=== PATIENT | female | born 1950 | race Two or more races ===

== ENCOUNTER 2022-05-07 16:35 | Inpatient (IN) | payer MEDICARE, OTHER ==
[~2022-05-07] VITALS: Ht 142.2 cm; Wt 48.1 kg
[2022-05-08 03:27] VITALS: BP 172/54
[2022-05-08] MEDS ORDERED: FURO80TA3 PO (03:40)
[2022-05-08] MEDS ORDERED: TOPUD PO (03:40)
[2022-05-08] MEDS ORDERED: AMLO10TA80 PO (03:40)
[2022-05-08] MEDS ORDERED: SODI650T PO (03:48)
[2022-05-08] MEDS ORDERED: LOSA50TA41 MT (03:48)
[2022-05-08] MEDS ORDERED: ACETAMINOPHEN 325MG TABLET PO PRN ×2 (05:15)
[2022-05-08] MEDS ORDERED: MAGNESIUM/ALUMINUM HYDROXIDE/SIMETHICONE 30ML UDC PO PRN (05:15)
[2022-05-08] MEDS ORDERED: GUAIFENESIN 200MG/10ML SUGAR FREE UDC PO PRN (05:15)
[2022-05-08] MEDS ORDERED: LORAZEPAM 0.5MG TABLET PO PRN (05:15)
[2022-05-08] MEDS ORDERED: DOCUSATE SODIUM 100MG CAPSULE PO PRN (05:15)
[2022-05-08] MEDS ORDERED: ENOXAPARIN 40MG/0.4ML SYR SUBCUT SCH (05:15)
[2022-05-08] MEDS ORDERED: IPRATROPIUM/ALBUTEROL 0.5-3(2.5)MG/3ML NEB HHN PRN (05:15)
[2022-05-08] MEDS ORDERED: ONDANSETRON HCL 4MG/2ML INJ IV PRN (05:15)
[2022-05-08] MEDS ORDERED: CLONIDINE 0.1MG TABLET PO PRN (05:15)
[2022-05-08] MEDS ORDERED: ACETAMINOPHEN 650MG SUPP PR PRN ×2 (05:15)
[2022-05-08] MEDS: ACETAMINOPHEN 325MG TABLET PO PRN ×2 (05:18→20:49)
[2022-05-08 05:27] VITALS: BP 172/54
[2022-05-08] MEDS ORDERED: NALOXONE HCL 0.4 MG/ML 1ML VIAL IV PRN (05:45)
[2022-05-08] MEDS: CLINDAMYCIN 600 MG PREMIX 50 ML IV SCH ×3 (06:58→21:47)
[2022-05-08 07:05] LABS: BASOPHILS % 0.7 % (0.0-2.0); EOSINOPHILS % 2.4 % (0.0-5.0); HEMATOCRIT. 31.2 % (36.0-48.0); HEMOGLOBIN. 10.5 g/dL (12.0-16.0); LYMPHOCYTES % 28.8 % (20.0-50.0); MEAN CORPUSCULAR HEMOGLOBIN 32.4 pg (28.0-32.0); MEAN PLATELET VOLUME 8.1 fl (7.4-10.4); MONOCYTES % 10.4 % (2.0-8.0); NEUTROPHILS % 57.7 % (40.0-76.0); PLATELET 215 x1000/uL (130-400); RED BLOOD CELL COUNT 3.25 mill/uL (4.2-5.4); RED CELL DISTRIBUTION WIDTH 15.3 % (11.6-14.6)
[2022-05-08 07:17] LABS: CHLORIDE 100 mEq/L (98-107)
[2022-05-08 07:32] LABS: CREATINE KINASE 26 IU/L (26-192); HDL CHOLESTEROL 36 mg/dL (40-59); LDL CHOLESTEROL 87 mg/dL (5-100); PHOSPHORUS 7.8 mg/dL (2.5-4.9)
[2022-05-08 08:00] VITALS: BP 147/54
[2022-05-08 09:36] LABS: CLARITY URINE CLEAR (CLEAR); COLOR URINE YELLOW (YELLOW); KETONES URINE NEGATIVE (NEGATIVE); LEUKOCYTE ESTERASE URINE NEGATIVE (NEGATIVE); NITRITE URINE NEGATIVE (NEGATIVE); OCCULT BLOOD URINE NEGATIVE (NEGATIVE); PROTEIN URINE 2+ (NEGATIVE); SPECIFIC GRAVITY URINE 1.011 (1.005-1.030); UROBILINOGEN URINE 0.2 E.U./dL (0.2-1.0)
[2022-05-08] MEDS: LOSARTAN POTASSIUM 50 MG TABLET PO SCH (09:42)
[2022-05-08] MEDS: AMLODIPINE 10MG TABLET PO SCH (09:48)
[2022-05-08] MEDS: ENOXAPARIN 30MG/0.3ML SYR SUBCUT SCH (09:48)
[2022-05-08] MEDS: FUROSEMIDE 40MG TABLET PO SCH ×2 (09:49→20:41)
[2022-05-08] MEDS: SODIUM BICARBONATE 650 MG TABLET PO SCH ×3 (09:51→17:24)
[2022-05-08 12:00] VITALS: BP 151/48
[2022-05-08] MEDS: AMOXICILLIN/POTASSIUM CLAVULANATE 500/125MG TAB PO SCH ×2 (12:10→21:00)
[2022-05-08 16:00] VITALS: BP 148/91
[2022-05-08 20:00] VITALS: BP 158/56
[2022-05-09] VITALS: BP 144/56
[2022-05-09 04:00] VITALS: BP 160/58
[2022-05-09] MEDS: CLINDAMYCIN 600 MG PREMIX 50 ML IV SCH ×2 (05:40→13:56)
[2022-05-09 07:31] LABS: EOSINOPHILS % 2.6 % (0.0-5.0); HEMATOCRIT. 28.1 % (36.0-48.0); HEMOGLOBIN. 9.5 g/dL (12.0-16.0); MEAN CORPUSCULAR HEMOGLOBIN 32.5 pg (28.0-32.0); MEAN CORPUSCULAR VOLUME 96.2 fL (81.0-99.0); MEAN PLATELET VOLUME 8.4 fl (7.4-10.4); MONOCYTES % 8.5 % (2.0-8.0); NEUTROPHILS % 62.9 % (40.0-76.0); PLATELET 204 x1000/uL (130-400); RED BLOOD CELL COUNT 2.92 mill/uL (4.2-5.4); RED CELL DISTRIBUTION WIDTH 14.9 % (11.6-14.6)
[2022-05-09 08:00] VITALS: BP 146/52
[2022-05-09] MEDS: ENOXAPARIN 30MG/0.3ML SYR SUBCUT SCH (09:34)
[2022-05-09] MEDS: AMLODIPINE 10MG TABLET PO SCH (09:34)
[2022-05-09] MEDS: LOSARTAN POTASSIUM 50 MG TABLET PO SCH (09:34)
[2022-05-09] MEDS: SODIUM BICARBONATE 650 MG TABLET PO SCH ×3 (09:34→17:00)
[2022-05-09] MEDS: FUROSEMIDE 40MG TABLET PO SCH ×2 (09:35→21:32)
[2022-05-09 12:00] VITALS: BP 118/69
[2022-05-09] MEDS: AMOXICILLIN/POTASSIUM CLAVULANATE 500/125MG TAB PO SCH ×2 (12:34→21:33)
[2022-05-09 16:00] VITALS: BP 144/58
[2022-05-09 20:00] VITALS: BP 115/55
[2022-05-09] MEDS: CLINDAMYCIN HCL 150MG CAPSULE PO SCH (21:33)
[2022-05-09] MEDS: ACETAMINOPHEN 325MG TABLET PO PRN (23:41)
[2022-05-10] VITALS: BP 159/58
[2022-05-10 04:00] VITALS: BP 157/55
[2022-05-10] MEDS: CLINDAMYCIN HCL 150MG CAPSULE PO SCH ×3 (05:01→21:16)
[2022-05-10 07:51] LABS: EOSINOPHILS % 2.7 % (0.0-5.0); HEMOGLOBIN. 9.7 g/dL (12.0-16.0); LYMPHOCYTES % 21.5 % (20.0-50.0); MEAN CORPUSCULAR HEMOGLOBIN 32.3 pg (28.0-32.0); MEAN PLATELET VOLUME 8.1 fl (7.4-10.4); MONOCYTES % 9.3 % (2.0-8.0); NEUTROPHILS % 65.5 % (40.0-76.0); PLATELET 212 x1000/uL (130-400); RED BLOOD CELL COUNT 2.99 mill/uL (4.2-5.4); RED CELL DISTRIBUTION WIDTH 14.9 % (11.6-14.6)
[2022-05-10 08:00] VITALS: BP 133/56
[2022-05-10] MEDS: SODIUM BICARBONATE 650 MG TABLET PO SCH ×3 (08:59→18:08)
[2022-05-10] MEDS: AMOXICILLIN/POTASSIUM CLAVULANATE 500/125MG TAB PO SCH ×2 (08:59→21:17)
[2022-05-10] MEDS: FUROSEMIDE 40MG TABLET PO SCH ×2 (09:00→21:17)
[2022-05-10] MEDS: LOSARTAN POTASSIUM 50 MG TABLET PO SCH (09:00)
[2022-05-10] MEDS: AMLODIPINE 10MG TABLET PO SCH (09:00)
[2022-05-10] MEDS: ENOXAPARIN 30MG/0.3ML SYR SUBCUT SCH ×2 (09:00→09:01)
[2022-05-10 12:00] VITALS: BP 149/49
[2022-05-10 20:00] VITALS: BP 163/58
[2022-05-11] VITALS: BP 154/51
[2022-05-11 04:00] VITALS: BP 155/62
[2022-05-11] MEDS: CLINDAMYCIN HCL 150MG CAPSULE PO SCH ×3 (05:50→21:13)
[2022-05-11 08:00] VITALS: BP 162/61
[2022-05-11] MEDS: ENOXAPARIN 30MG/0.3ML SYR SUBCUT SCH ×2 (09:00→09:22)
[2022-05-11] MEDS: FUROSEMIDE 40MG TABLET PO SCH ×2 (09:20→21:13)
[2022-05-11] MEDS: SODIUM BICARBONATE 650 MG TABLET PO SCH ×3 (09:20→17:10)
[2022-05-11] MEDS: AMLODIPINE 10MG TABLET PO SCH (09:21)
[2022-05-11] MEDS: AMOXICILLIN/POTASSIUM CLAVULANATE 500/125MG TAB PO SCH ×2 (09:21→21:12)
[2022-05-11] MEDS: LOSARTAN POTASSIUM 50 MG TABLET PO SCH (09:21)
[2022-05-11 12:00] VITALS: BP 145/65
[2022-05-11 16:00] VITALS: BP 162/65
[2022-05-11 20:00] VITALS: BP 133/49
[2022-05-11] MEDS: HYDROCODONE/ACETAMINOPHEN 5/325MG TABLET PO PRN (21:18)
[2022-05-12] VITALS: BP 132/63
[2022-05-12 04:00] VITALS: BP 127/58
[2022-05-12] MEDS: CLINDAMYCIN HCL 150MG CAPSULE PO SCH ×3 (05:34→23:48)
[2022-05-12 08:00] VITALS: BP 144/64
[2022-05-12] MEDS: ENOXAPARIN 30MG/0.3ML SYR SUBCUT SCH (09:00)
[2022-05-12] MEDS: AMOXICILLIN/POTASSIUM CLAVULANATE 500/125MG TAB PO SCH ×2 (09:56→20:44)
[2022-05-12] MEDS: SODIUM BICARBONATE 650 MG TABLET PO SCH ×3 (09:56→17:26)
[2022-05-12] MEDS: FUROSEMIDE 40MG TABLET PO SCH ×2 (09:57→20:45)
[2022-05-12] MEDS: AMLODIPINE 10MG TABLET PO SCH (09:57)
[2022-05-12] MEDS: LOSARTAN POTASSIUM 50 MG TABLET PO SCH (09:57)
[2022-05-12 12:00] VITALS: BP 153/53
[2022-05-12 16:00] VITALS: BP 133/64
[2022-05-12 20:00] VITALS: BP 148/58
[2022-05-12] MEDS: HYDROCODONE/ACETAMINOPHEN 5/325MG TABLET PO PRN (20:47)
[2022-05-13] VITALS: BP 128/58
[2022-05-13 04:00] VITALS: BP 112/50
[2022-05-13] MEDS: CLINDAMYCIN HCL 150MG CAPSULE PO SCH ×3 (06:47→21:13)
[2022-05-13 08:00] VITALS: BP_SYST 109; BP_SYST 141; BP_DIAS 52; BP_DIAS 56
[2022-05-13] MEDS: LOSARTAN POTASSIUM 50 MG TABLET PO SCH (08:46)
[2022-05-13] MEDS: AMOXICILLIN/POTASSIUM CLAVULANATE 500/125MG TAB PO SCH (08:46)
[2022-05-13] MEDS: AMLODIPINE 10MG TABLET PO SCH (08:47)
[2022-05-13] MEDS: FUROSEMIDE 40MG TABLET PO SCH ×2 (08:47→21:13)
[2022-05-13] MEDS: SODIUM BICARBONATE 650 MG TABLET PO SCH ×3 (08:48→16:35)
[2022-05-13] MEDS: ENOXAPARIN 30MG/0.3ML SYR SUBCUT SCH ×2 (08:48→08:59)
[2022-05-13 12:00] VITALS: BP 110/47
[2022-05-13 16:00] VITALS: BP 113/50
[2022-05-13 20:00] VITALS: BP 125/61
[2022-05-13] MEDS: ATORVASTATIN CALCIUM 20MG TABLET PO SCH (21:13)
[2022-05-14] VITALS: BP 123/93
[2022-05-14 04:00] VITALS: BP 124/82
[2022-05-14] MEDS: LEVOTHYROXINE SODIUM 88MCG TABLET PO SCH (06:37)
[2022-05-14 06:47] LABS: EOSINOPHILS % 2.8 % (0.0-5.0); HEMATOCRIT. 35.2 % (36.0-48.0); HEMOGLOBIN. 11.7 g/dL (12.0-16.0); LYMPHOCYTES % 28.7 % (20.0-50.0); MEAN CORPUSCULAR HEMOGLOBIN 32.7 pg (28.0-32.0); MEAN CORPUSCULAR VOLUME 98.5 fL (81.0-99.0); MEAN PLATELET VOLUME 8.4 fl (7.4-10.4); MONOCYTES % 7.6 % (2.0-8.0); NEUTROPHILS % 59.9 % (40.0-76.0); PLATELET 306 x1000/uL (130-400); RED BLOOD CELL COUNT 3.57 mill/uL (4.2-5.4); RED CELL DISTRIBUTION WIDTH 15.1 % (11.6-14.6)
[2022-05-14 08:00] VITALS: BP 105/58
[2022-05-14] MEDS: SODIUM BICARBONATE 650 MG TABLET PO SCH ×3 (09:00→18:02)
[2022-05-14] MEDS: FUROSEMIDE 40MG TABLET PO SCH ×2 (09:00→22:05)
[2022-05-14] MEDS: AMLODIPINE 10MG TABLET PO SCH (09:00)
[2022-05-14] MEDS: LOSARTAN POTASSIUM 50 MG TABLET PO SCH (09:00)
[2022-05-14 12:00] VITALS: BP 99/53
[2022-05-14] MEDS ORDERED: LIDOCAINE HCL 1% 10 MG/ML 10ML VIAL ONE (12:20)
[2022-05-14] MEDS ORDERED: HEPARIN 1000 UNITS/ML 10ML ONE (12:20)
[2022-05-14] MEDS ORDERED: IODIXANOL 320MG/ML 100 ML BOTTLE IV ONE (12:20)
[2022-05-14] MEDS ORDERED: MIDAZOLAM HCL 2 MG/2 ML VIAL ONE ×2 (12:23→13:50)
[2022-05-14] MEDS ORDERED: FENTANYL CITRATE/PF 50MCG/ML 2ML VIAL ONE (12:23)
[2022-05-14] MEDS ORDERED: CEFAZOLIN 1000MG PREMIX 50 ML IV ONE (13:54)
[2022-05-14] MEDS ORDERED: PROTAMINE SULFATE 10MG/ML VIAL 25ML IV ONE (14:24)
[2022-05-14 16:00] VITALS: BP 104/60
[2022-05-14] MEDS ORDERED: AMLO10TA80 PO (18:20)
[2022-05-14] MEDS ORDERED: APIX2.5T MT (18:20)
[2022-05-14] MEDS ORDERED: LEVO88TA7 PO (18:20)
[2022-05-14] MEDS ORDERED: LOSA50TA3 PO (18:20)
[2022-05-14] MEDS ORDERED: ATOR20TA PO (18:20)
[2022-05-14 20:00] VITALS: BP 125/84
[2022-05-14] MEDS: ATORVASTATIN CALCIUM 20MG TABLET PO SCH (22:05)
[2022-05-15] VITALS: BP 112/57
[2022-05-15 04:00] VITALS: BP 118/63
[2022-05-15] MEDS: LEVOTHYROXINE SODIUM 88MCG TABLET PO SCH (06:28)
[2022-05-15 07:31] VITALS: BP 118/63
[2022-05-15 08:00] VITALS: BP 146/66
[2022-05-15] MEDS: AMLODIPINE 10MG TABLET PO SCH (09:00)
[2022-05-15] MEDS: ENOXAPARIN 30MG/0.3ML SYR SUBCUT SCH (09:00)
[2022-05-15] MEDS: FUROSEMIDE 40MG TABLET PO SCH (09:00)
[2022-05-15] MEDS: SODIUM BICARBONATE 650 MG TABLET PO SCH (09:00)
[2022-05-15] MEDS: LOSARTAN POTASSIUM 50 MG TABLET PO SCH (09:00)
== END 2022-05-15 10:59 | disposition home or self-care (01) | DRG 252 ==
LOC: 6EST 16:35 → UNDOADMIN 16:35 → 6EST 05-08 05:07 → UNDOADMIN 05-08 15:28 → UNDODISIN 05-15 10:59
PROVIDERS: ADMIT Family Medicine Adult Medicine; ATTEND Family Medicine Adult Medicine
PROC: 3E1M39Z Irrigation of Peritoneal Cavity using Dialysate, Percutaneous Approach (ICD-10-PCS; 2022-05-10)
PROC: B41F1ZZ Fluoroscopy of Right Lower Extremity Arteries using Low Osmolar Contrast (ICD-10-PCS; principal; 2022-05-14)
PROC: 047M3ZZ Dilation of Right Popliteal Artery, Percutaneous Approach (ICD-10-PCS; 2022-05-14)
PROC: 047R3ZZ Dilation of Right Posterior Tibial Artery, Percutaneous Approach (ICD-10-PCS; 2022-05-14)
PROC: 047K3ZZ Dilation of Right Femoral Artery, Percutaneous Approach (ICD-10-PCS; 2022-05-14)
DX: E11.52 Type 2 diabetes mellitus with diabetic peripheral angiopathy with gangrene (principal); N18.6 End stage renal disease; I12.0 Hypertensive chronic kidney disease with stage 5 chronic kidney disease or end stage renal disease; E44.1 Mild protein-calorie malnutrition; I96 Gangrene, not elsewhere classified; D64.9 Anemia, unspecified; E11.22 Type 2 diabetes mellitus with diabetic chronic kidney disease; I99.8 Other disorder of circulatory system; E03.9 Hypothyroidism, unspecified; E78.5 Hyperlipidemia, unspecified; E05.90 Thyrotoxicosis, unspecified without thyrotoxic crisis or storm; E11.42 Type 2 diabetes mellitus with diabetic polyneuropathy; K21.9 Gastro-esophageal reflux disease without esophagitis; E11.621 Type 2 diabetes mellitus with foot ulcer; L97.519 Non-pressure chronic ulcer of other part of right foot with unspecified severity; Z20.822 Contact with and (suspected) exposure to COVID-19; Z99.2 Dependence on renal dialysis; Z68.23 Body mass index [BMI] 23.0-23.9, adult
CPT/HCPCS: 36415; 37224; 37228; 71045; 75710; 80048; 80053; 80061; 81003; 82550; 82962; 83735; 84100; 84443; 84484; 85025; 85347; 87426; 93005; C1725; C1760; C1769; C1887; C1893; C1894; J0690; J1644; J1650; J2250; J2720; J3010; J3490; Q9967